=== PATIENT | male | born 2005 | race African-American/Black ===

== ENCOUNTER 2023-02-22 12:40 | Emergency (ER) | payer OTHER, MEDICAID, SELFPAY ==
[2023-02-22 13:06] VITALS: BP 127/62; PULSE 54; RESP 16; TEMP 36.5; O2SAT 100
--- NOTE | 2023-02-22 13:48 | ED.LOWEXIN ---
HPI - Extremity Injury (Lower) General Chief Complaint: Extremity Injury, Lower Stated Complaint: left leg pain Time Seen by Provider: 02/22/23 13:48 Source: patient Mode of arrival: ambulatory Limitations: no limitations History of Present Illness HPI Narrative: 17-year-old male presented for complaint of left calf pain for about 1.5 weeks. He denies known injury, but states he may have injured it while playing basketball, possibly taking a knee into the calf. He denies redness or swelling, numbness, tingling, weakness, chest pain, heart racing, shortness of breath, or dizziness. He has not taken anything for pain. He reports the calf pain has worsened since onset. Currently rates pain 8/10. Worse with walking and certain movements of the leg. Related Data Home Medications Medication Instructions Recorded Confirmed No Home Medications 02/22/23 02/22/23 Allergies Allergy/AdvReac Type Severity Reaction Status Date / Time No Known Allergies Allergy Unverified 02/22/23 13:16 Review of Systems Review of Systems: CONSTITUTIONAL: Denies body aches, fever, chills EYES: Denies visual changes ENT: Denies rhinorrhea, congestion CARDIOVASCULAR: Denies chest pain, palpitations, or edema. RESPIRATORY: Denies cough or dyspnea. GASTROINTESTINAL: Denies abdominal pain, nausea, vomiting, or diarrhea. SKIN: Denies rash, itching, or wounds. MUSCULOSKELETAL: Per HPI NEUROLOGIC: Denies headache, numbness, tingling, or weakness. PSYCH: Denies depression or anxiety. All systems reviewed & are unremarkable except as noted in HPI and below [facility] Past Medical History Medical History (Updated 02/22/23 @ 14:08 by Korin Acosta, ISATU) No pertinent past medical history Comments At time of signature, I have reviewed and agree with nursing past medical, surgical, social and family history unless otherwise noted. Please see nursing chart for further information. There is no relevant family history pertinent to the presenting complaint Exam Narrative: GENERAL: Well-appearing, in no acute distress. HEAD: Normocephalic, atraumatic. CHEST: Speaks in full sentences. No respiratory distress. Lungs clear. HEART: Regular rate and rhythm. Normal and equal peripheral pulses. EXTREMITIES: LLE has normal strength and sensation, Limited range of motion due to pain with movement; reports calf pain with foot dorsiflexion and flexion of knee. Tender calf with palpation. No edema, erythema, or ecchymosis. No open wounds, or obvious deformity; alignment normal, pulse palpable and equal bilaterally, skin warm, dry, pink. Capillary refill less than 3 seconds. SKIN: Warm, dry, no rash. NEURO: Alert and oriented x3. PSYCH: Normal mood and affect Course Course Emergency Course: Patient is aware of diagnosis, understands and agrees to treatment plan. Anticipatory guidance given. Portions of this record may have been created with voice recognition software Level of Care: Express Care Visit Vital Signs Vital signs: Vital Signs Temperature 97.7 F 02/22/23 13:06 Pulse Rate 54 L 02/22/23 13:06 Respiratory Rate 16 02/22/23 13:06 Blood Pressure 127/62 02/22/23 13:06 Pulse Oximetry 100 02/22/23 13:06 Oxygen Delivery Room Air 02/22/23 13:06 Temperature 97.7 F 02/22/23 13:06 Pulse Rate 54 L 02/22/23 13:06 Respiratory Rate 16 02/22/23 13:06 Blood Pressure 127/62 02/22/23 13:06 Pulse Oximetry 100 02/22/23 13:06 Oxygen Delivery Room Air 02/22/23 13:06 Reviewed Transfer Transfered to: [facility] Transportation: Other (Private vehicle) Transfer rationale: Pt is agreeable to transfer. Requests transfer to [facility] via private vehicle. Risks of transportation reviewed with pt including injury, worsening of condition and . v/u. Report called to hospital, spoke with Dave RAMIRES, Dr Ridley accepting physician. Pt is in stable condition at time of coburn
--- NOTE | 2023-02-22 14:03 | PC.NURSE ---
provider to provider report to [facility].
== END 2023-02-22 14:07 | disposition short-term general hospital (02) ==
PROVIDERS: Emergency Provider Nurse Practitioner Family
DX: M79.662 Pain in left lower leg (principal)
CPT/HCPCS: 99212; G0463

== ENCOUNTER 2024-10-25 06:06 | Emergency (ER) | payer OTHER, SELFPAY ==
--- NOTE | ~2024-10-25 | XR_ITS ---
EXAMINATION: XR chest 2V 10/25/2024 06:22 INDICATION: Chest pain PROCEDURE: 2 view chest COMPARISON: No prior studies for comparison. FINDINGS: The lungs are clear. The cardiomediastinal silhouette is within normal limits. There are no pleural effusions. There is no pneumothorax suspected. IMPRESSION: 1: NO ACUTE CARDIOPULMONARY DISEASE. Reviewed, dictated and finalized at location A. ING ADJUDICATOR
--- NOTE | 2024-10-25 06:08 | ECG_ITS ---
Test Date: 2024-10-25 06:15:50 Measurements Intervals [place] Rate: 70 P: 6 NE: 149 QRS: 60 QRSD: 98 T: 15 QT: 348 QTc: 377 Interpretive Statements SINUS RHYTHM NONSPECIFIC T-WAVE ABNORMALITY No previous ECG available for comparison Electronically Signed On 10-25-2024 14:34:11 LABORER [employer]FINERY by Hattie Gregory M.D.
--- OUTSIDE RECORDS SUMMARY | 2024-10-25 06:08 | XMS_ITS | Patient Health Summary ---
Author Organization [facility] Address [address] [place] [address] Care Team Providers Care Satellite Installation Technician Name Role Phone Donna Vizcaino MD, Cheikh Lester Primary Care Provider Note from [facility],non-owned Affiliates and Associated Physician Practices is amultiple site organization consisting of ambulatory clinics and hospital sitesin [place], [place]. This disclosure is being madepursuant to the Care Everywhere program and may not contain all information available regarding this patient. Last updated 18.[facility] Allergies No known active allergies Medications Be aware that medications may not be up to date on this document. Always verify current medications with the patient. No known medications Active Problems Problem Noted Date Diagnosed Date Buckle fracture of left wrist 06/07/2018 Social History Tobacco Use Types Packs/Day Years Used Date Smoking Tobacco: Never Assessed Sex and Gender Information Value Date Recorded Sex Assigned at Not on file Gender Identity Not on file Sexual Orientation Not on file Last Filed Vital Signs Vital Sign Reading Time Taken Comments Blood Pressure 104/58 06/07/2018 10:11 AM CDT Pulse - - Temperature - - Respiratory Rate - - Oxygen Saturation - - Inhaled Oxygen Concentration - - Weight 48.1 kg (106 lb 0.7 oz) 06/07/2018 10:11 AM CDT with arm splinted Height 165.2 cm (5' 5.04 ) 06/07/2018 1 0:11 AM CDT Body Mass Index 17.63 06/07/2018 10:11 AM CDT Procedures * XR FOREARM LEFT 2VW OR MORE(Performed 06/07/2018) Performed for Left arm pain Results * XR FOREARM 2 VW LEFT (06/07/2018 10:46 AM CDT) Anatomical Region Laterality Modality Upper Extremity Radiographic Sofia ging 06/07/2018 10:4 9 AM CDT Impressions 06/07/2018 11:39 AM CDT Distal radial metaphyseal buckle fracture. Dictated by Shaquille Kahn MD (resident buyer). Dante Barksdale, have personally reviewed the images and I agree with this report. Reading Radiologist: Clayton Kahn MD on 06/07/2018 at 11:39 AM Narrative 06/07/2018 11:39 AM CDT EXAMINATION: Left forearm, 2 views HISTORY: Left forearm pain COMPARISON: No prior study is available for comparison. FINDINGS: There is a buckle fracture of the distal radial metaphysis. Bone density is normal. ??Soft tissue swelling is present at the wrist. Procedure Note Danet Jamil MD - 06/07/2018 EXAMINATION: Left forearm, 2 views HISTORY: Left forearm pain COMPARISON: No prior study is available for comparison. FINDINGS: There is a buckle fracture of the distal radial metaphysis. Bone density is normal. Soft tissue swelling is present at the wrist. IMPRESSION Distal radial metaphyseal buckle fracture. Dictated by Shaquille Kahn MD (resident buyer). Dante Barksdale, have personally reviewed the images and I agree with this report. Reading Radiologist: Clayton Kahn MD on 06/07/2018 at 11:39 AM Elliott Naik PA-[facility] DIAGNOSTIC IMAGING O [facility] Care Teams Satellite Installation Technician Relationship Specialty Start Date End Date Cheikh Thompson Jr., MD [address] [place], [place] [id number] PCP - General 07/18/18
--- OUTSIDE RECORDS SUMMARY | 2024-10-25 06:08 | XMS_ITS | Clinical Summary ---
Author Organization [facility] Address [address] [place] [address] Care Team Providers Care Lock Installer Name Role Phone Donna Vizcaino MD, Cheikh Lester Primary Care Provider Source Comments [facility] [employer],non-owned Affiliates and Associated Physician Practices is amultiple site organization consisting of ambulatory clinics and hospital sitesin [place], [place], [place] and [place]. This disclosure is being madepursuant to the Care Everywhere program and may not contain all information available regarding this patient. Last updated 18.[employer] Allergies No known active allergies Medications Be [...] Mass Index 17.63 06/07/2018 10:11 AM CDT Plan of Treatment Health Maintenance Due Date Last Done Comments HIV SCREENING 2018 HPV VACCINE (1 - Male 3-dose series) 2018 MENINGOCOCCAL (Group B) VACC INE (1 of 2 - Standard) 2019 HEPATITIS C SCREENING 09/25/2021 DTAP/TDAP/TD VACCINES (1 - Tdap) 2022 HEPATITIS B VACCINE (1 of 3 - 19+ 3-dose series) 2022 COVID-19 VACCINE (1 - 2023-2 5 season) 2024 INFLUENZA VACCINE (#1) 2024 DEPRESSION SCREENING 09/25/2024 ZOSTER VACCINE (1 of 2) 2053 HIB VACCINE Aged Out No longer eligi ble based on patient's age to complete this topic MENINGOCOCCAL VACCINE Aged Out No josh erlinda eligible based on patient's age to complete this topic PNEUMOCOCCAL VACCINE Aged Out No long er eligible based on patient's age to complete this topic Care Teams Lock Installer Relationship Specialty Start Date End Date Cheikh Thompson Jr., MD [address] [place], [place] [phone] PCP - General 07/18/18
--- OUTSIDE RECORDS SUMMARY | 2024-10-25 06:08 | XMS_ITS | Referral Summary ---
Author Organization [place] [id number] [facility] Address [address] [place] [address] Care Team Providers Care Manager Technical Name Role Phone Ludwin Araiza MD Primary Care Provider [phone] Allergies No known active allergies Medications cyclobenzaprine (FLEXERIL) 10 mg tablet Take 1 tablet (10 mg total) by mouth 3 (three) times a day as needed for muscle spasms for up to 20 doses 15 tablet 02/22/2023 Active Social History Tobacco Use Types Packs/Day Years Used Date Smoking Tobacco: Never Assessed Personal Safety Answer Date Recorded Getting School Help Needed Not on file 09/24 Sex and Gender Information Value Date Recorded Sex Assigned at Not on file 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 Gender Identity Not on file Sexual Orientation Not on file Last Filed Vital Signs Vital Sign Reading Time Taken Comments Blood Pressure 156/76 02/22/2023 3:31 PM CDT Pulse 58 02/22/2023 3:31 PM CDT Temperature 36.8 ??C (98.3 ??F) 02/22/2023 3:31 PM CD T Respiratory Rate 16 02/22/2023 3:31 PM CDT Oxygen Saturation 99% 02/22/2023 3:31 PM CDT Inhaled Oxygen Concentration - - Weight 72.6 kg (160 lb) 02/22/2023 3:31 PM CDT Height 175.3 cm (5' 9 ) 02/22/2023 3:31 PM CDT Body Mass Index 23.63 02/22/2023 3:31 PM CDT Plan of Treatment Not on file Insurance IDPA IDPA Care Teams Manager Technical Relationship Specialty Start Date End Date Ludwin Araiza MD PCP - General Emergency Medicine 03/01/23
--- OUTSIDE RECORDS SUMMARY | 2024-10-25 06:08 | XMS_ITS | Clinical Summary ---
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 Gender Identity Not on file Sexual Orientation [...] 02/22/2023 3:31 PM CDT Plan of Treatment Health Maintenance Due Date Last Done Comments Depression Screening 2003 Hepatitis C Screening 2003 DTaP/Tdap/Td Vaccine (1 - Tdap) 2014 Varicella Vaccines (1 of 2 - 13+ 2-dose series) 2016 HPV Vaccines (1 - Male 3-dos e series) 2018 Meningococcal B Vaccine (1 o f 2 - Patient Seeks Protection) 2019 Hepatitis B Screening 2021 Regular Well Visit/Exam 18-64 2021 Influenza Vaccine (#1) 2024 Meningococcal Vaccine Aged Out No josh erlinda eligible based on patient's age to complete this topic Pneumococcal vaccine <65 Aged Out No longer eligible based on patient's age to complete this topic Insurance IDPA IDPA Care Teams Straw Hat Brim Raiser Operator Relationship Specialty Start Date End Date Ludwin Araiza MD PCP - General Emergency Medicine 03/01/23
--- OUTSIDE RECORDS SUMMARY | 2024-10-25 06:08 | XMS_ITS | Referral Summary ---
Author Organization [facility] [employer] Address [address] [place] [address] Care Team Providers Care Supervisor Food Checkers And Cashiers Name Role Phone Donna Vizcaino MD, Cheikh Lester Primary Care Provider Source Comments [facility] [employer],non-owned Affiliates and Associated Physician Practices is amultiple site organization consisting of ambulatory clinics and hospital sitesin [place], [place], [place] and [place]. This disclosure is being madepursuant to the Care Everywhere program and may not contain all information available regarding this patient. Last updated 18.[facility] [employer] Allergies No known active allergies Medications Be [...] 06/07/2018 10:11 AM CDT Plan of Treatment Not on file Care Teams Supervisor Food Checkers And Cashiers Relationship Specialty Start Date End Date Cheikh Thompson Jr., MD [address] [place], [place] [phone] PCP - General 07/18/18
[2024-10-25 06:17] VITALS: BP 148/73; PULSE 68; RESP 16; TEMP 36.6; O2SAT 100
[2024-10-25 06:22] LABS: Basophils Percent Auto 0.7 % (0.2-1.2); Eosinophils Absolute Auto 0.1 K/mm3 (0-0.3); Eosinophils Percent Auto 2.9 % (0-4.4); Hematocrit 46.8 % (42.0-52.0); Hemoglobin 15.3 g/dL (14.0-18.0); Immature Granulocyte Absolute 0.01 K/mm3 (0.00-0.031); Immature Granulocyte Percent A 0.2 % (0-0.5); Lymphocytes Absolute Auto 1.92 K/mm3 (0.9-3.2); Lymphocytes Percent Auto 42.3 % (18.3-44.2); Mean Corpuscular HGB Conc 32.7 g/dl (32-36); Mean Corpuscular Hemoglobin 28.1 pg (26-34); Mean Platelet Volume 10.3 fl (7.4-10.4); Monocytes Absolute Auto 0.3 K/mm3 (0.1-0.6); Monocytes Percent Auto 7.5 % (2.6-8.5); Neutrophils Absolute Auto 2.1 K/mm3 (1.3-6.7); Neutrophils Percent Auto 46.4 % (45.5-73.1); Platelet Count Result 198 k/mm3 (150-375); Red Blood Count 5.44 M/mm3 (4.6-6.20); Red Cell Distribution Width 13.1 % (11.5-14.5); White Blood Count 4.5 K/mm3 (4.5-10.0)
[2024-10-25 06:44] LABS: Alanine Aminotransferase 25 U/L (6-50); Albumin Level 4.3 g/dL (3.5-5.1); Alkaline Phosphatase 67 U/L (38-126); Anion Gap 11 mmol/L (4-12); Aspartate Amino Transferase 25 U/L (17-59); Bilirubin,Total 0.7 mg/dL (0.2-1.3); Blood Urea Nitrogen 13 mg/dL (9-20); Calcium 9.5 mg/dL (8.4-10.2); Carbon Dioxide 25 mmol/L (22-30); Chloride 105 mmol/L (98-107); Estimated CRCL calculation 140 ml/min; Estimated Glomerular Filt Rate > 60; Glucose 103 mg/dL (65-110); Lipase 47 U/L (23-300); Potassium 3.9 mmol/L (3.4-5.0); Sodium 141 mmol/L (137-145)
[2024-10-25 06:48] LABS: Troponin I < 0.012 ng/mL (0.000-0.034)
[2024-10-25 07:00] LABS: Influenza A QL RT-PCR Negative (Negative); Influenza B QL RT-PCR Negative (Negative); RSV RNA, RT-PCR Negative (Negative); SARS-CoV-2 RNA PCR Negative (Negative)
[2024-10-25 07:05] LABS: Prothrombin Time 13.6 Seconds (11.1-14.7)
[2024-10-25 07:06] LABS: Partial Thromboplastin Time 30.2 Seconds (22.3-36.8)
--- NOTE | 2024-10-25 10:26 | PC.NURSE ---
called to place in room and not in waiting room
--- OUTSIDE RECORDS SUMMARY | 2024-10-25 10:38 | XMS_ITS | Clinical Summary ---
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
--- OUTSIDE RECORDS SUMMARY | 2024-10-25 10:38 | XMS_ITS | Clinical Summary ---
Author Organization [facility] [employer] Address [address] [place] [address] Care Team Providers Care Email Marketer Name Role Phone Donna Vizcaino MD, Cheikh Lester Primary Care Provider Source Comments [facility] [employer],non-owned Affiliates and Associated Physician Practices is amultiple site organization consisting of ambulatory clinics and hospital sitesin [place], [place], [place] and [place]. This disclosure is being madepursuant to the Care Everywhere program and may not contain all information available regarding this patient. Last updated 18.[employer] Allergies No known active allergies Medications Be [...] age to complete this topic Care Teams Email Marketer Relationship Specialty Start Date End Date Cheikh Thompson Jr., MD [address] [place], [place] [phone] PCP - General 07/18/18
--- OUTSIDE RECORDS SUMMARY | 2024-10-25 10:38 | XMS_ITS | Referral Summary ---
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
--- OUTSIDE RECORDS SUMMARY | 2024-10-25 10:38 | XMS_ITS | Referral Summary ---
Author Organization [facility] [employer] Address [address] [place] [address] Care Team Providers Care Cupola Melter Helper Name Role Phone Donna Vizcaino MD, Cheikh Lester Primary Care Provider Source Comments [facility] [employer]),non-owned Affiliates and Associated Physician Practices is amultiple site organization consisting of ambulatory clinics and hospital sitesin [place], [place], [place] and [place]. This disclosure is being madepursuant to the Care Everywhere program and may not contain all information available regarding this patient. Last updated 18.[facility] [employer] Allergies No known active allergies Medications Be [...] of Treatment Not on file Care Teams Cupola Melter Helper Relationship Specialty Start Date End Date Cheikh Thompson Jr., MD [address] [place], [place] [phone] PCP - General 07/18/18
--- OUTSIDE RECORDS SUMMARY | 2024-10-25 10:38 | XMS_ITS | Patient Health Summary ---
Author Organization [facility] [employer] Address [address] [place] [address] Care Team Providers Care Procurement Director Name Role Phone Donna Vizcaino MD, Cheikh Lester Primary Care Provider Note from [facility],non-owned Affiliates and Associated Physician Practices is amultiple site organization consisting of ambulatory clinics and hospital sitesin [place], [place], [place] and [place]. This disclosure is being madepursuant to the Care Everywhere program and may not contain all information available regarding this patient. Last updated 18.[facility] [employer] Allergies No known active allergies Medications Be [...] buckle fracture. Dictated by Shaquille Kahn MD (senior vice president and chief information officer). Dante Barksdale, have personally reviewed the images [...] is present at the wrist. Procedure Note Dante Jamil MD - 06/07/2018 EXAMINATION: Left forearm, 2 views HISTORY: Left forearm pain COMPARISON: No prior study is available for comparison. FINDINGS: There is a buckle fracture of the distal radial metaphysis. Bone density is normal. Soft tissue swelling is present at the wrist. IMPRESSION Distal radial metaphyseal buckle fracture. Dictated by Shaquille Kahn MD (senior vice president and chief information officer). Dante Barksdale, have personally reviewed the images and I agree with this report. Reading Radiologist: Clayton Kahn MD on 06/07/2018 at 11:39 AM Elliott Naik PA-[facility] DIAGNOSTIC IMAGING O [facility] Care Teams Procurement Director Relationship Specialty Start Date End Date Cheikh Thompson Jr., MD [address] [place], [place] [phone] PCP - General 07/18/18
== END 2024-10-25 11:05 | disposition left against medical advice (07) ==
PROVIDERS: Emergency Provider Student in an Organized Health Care Education/Training Program
DX: R07.9 Chest pain, unspecified (principal); Z20.822 Contact with and (suspected) exposure to COVID-19
CPT/HCPCS: 36415; 71046; 80053; 83690; 84484; 85025; 85610; 85730; 87637; 93005; 99199

== ENCOUNTER 2024-12-01 01:39 | Emergency (ER) | payer OTHER, SELFPAY ==
[2024-12-01 01:40] VITALS: BP 133/84; PULSE 73; RESP 18; TEMP 36.7; O2SAT 100
--- OUTSIDE RECORDS SUMMARY | 2024-12-01 01:41 | XMS_ITS | Clinical Summary ---
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 Gender Identity Not on file Sexual Orientation Not on file Last Filed Vital Signs Vital Sign Reading Time Taken Comments Blood Pressure 156/76 02/22/2023 3:31 PM CDT Pulse 58 02/22/2023 3:31 PM CDT Temperature 36.8 C (98.3 F) 02/22/2023 3:31 PM CDT Respiratory Rate 16 02/22/2023 3:31 PM CDT [...] B Vaccine (1 o f 2 - Standard) 2019 Hepatitis B Screening 2021 Regular Well Visit/Exam 18-64 2021 Influenza Vaccine (#1) 2024 Meningococcal Vaccine Aged Out No josh erlinda eligible based on patient's age to complete this topic Pneumococcal vaccine <65 Aged Out No longer eligible based on patient's age to complete this topic Insurance IDPA IDPA Care Teams Night Stocker Relationship Specialty Start Date End Date Ludwin Araiza MD PCP - General Emergency Medicine 03/01/23
--- OUTSIDE RECORDS SUMMARY | 2024-12-01 01:41 | XMS_ITS | Clinical Summary ---
Author Organization [facility] [employer] Address [address] [place] [address] Care Team Providers Care Heatset Winder Operator Name Role Phone Donna Vizcaino MD, Cheikh Lester Primary Care Provider Source Comments [facility] [employer],non-owned Affiliates and Associated Physician Practices is amultiple site organization consisting of ambulatory clinics and hospital sitesin [place], [place] and [place]. This disclosure is being madepursuant to the Care Everywhere program and may not contain all information available regarding this patient. Last updated 18.[employer] Allergies No known active allergies Medications Be [...] age to complete this topic Care Teams Heatset Winder Operator Relationship Specialty Start Date End Date Cheikh Thompson Jr., MD [address] [place], [place] [phone] PCP - General 07/18/18
--- OUTSIDE RECORDS SUMMARY | 2024-12-01 01:41 | XMS_ITS | Patient Health Summary ---
Author Organization [facility] [employer] Address [address] [place] [address] Care Team Providers Care Instructional Facilitator Name Role Phone Donna Vizcaino MD, Cheikh Lester Primary Care Provider Note from [facility],non-owned Affiliates and Associated Physician Practices is amultiple site organization consisting of ambulatory clinics and hospital sitesin [place], [place], [place] and [place]. This disclosure is being madepursuant to the Care Everywhere program and may not contain all information available regarding this patient. Last updated 18.[facility] [employer] Allergies No known active allergies Medications Be [...] buckle fracture. Dictated by Shaquille Kahn MD (vice president of nursing). Dante Barksdale, have personally reviewed the images [...] buckle fracture. Dictated by Shaquille Kahn MD (vice president of nursing). Dante Barksdale, have personally reviewed the images and I agree with this report. Reading Radiologist: Clayton Kahn MD on 06/07/2018 at 11:39 AM Elliott Naik PA-C DIAGNOSTIC IMAGING O [facility] Care Teams Instructional Facilitator Relationship Specialty Start Date End Date Cheikh Thompson Jr., MD [address] [place], [place] [phone] PCP - General 07/18/18
--- OUTSIDE RECORDS SUMMARY | 2024-12-01 01:41 | XMS_ITS | Referral Summary ---
Author Organization [facility] [employer] Address [address] [place] [place] [address] Care Team Providers Care Packaging Mechanic Name Role Phone Donna Vizcaino MD, Cheikh Lester Primary Care Provider Source Comments [facility] [employer],non-owned Affiliates and Associated Physician Practices is amultiple site organization consisting of ambulatory clinics and hospital sitesin [place], [place], [place] and [place]. This disclosure is being madepursuant to the Care Everywhere program and may not contain all information available regarding this patient. Last updated 18.[employer] Allergies No known active allergies Medications Be [...] of Treatment Not on file Care Teams Packaging Mechanic Relationship Specialty Start Date End Date Cheikh Thompson Jr., MD [address] [place], [place] [phone] PCP - General 07/18/18
--- OUTSIDE RECORDS SUMMARY | 2024-12-01 01:41 | XMS_ITS | Referral Summary ---
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
--- NOTE | 2024-12-01 01:59 | ED_ITS ---
HPI - General Adult General Chief complaint: Unspecified Stated complaint: sore throat Time Seen by Provider: 12/01/24 01:45 Source: patient Mode of arrival: ambulatory Limitations: no limitations History of Present Illness HPI narrative: This is a 19-year-old male who denies significant past medical history, presenting to the emergency department complaining of sore throat for the past day. The patient rates his pain 7/10. He denies associated cough, vomiting or shortness of breath. He states he has had some upper respiratory congestion. He denies any known sick contacts or recent travel. He has no other acute complaints at this time. Related Data Home Medications ?Medication ?Instructions ?Recorded ?Confirmed ?Last Taken ?Type Tylenol 02/28/23 Unknown History Allergies Allergy/AdvReac Type Severity Reaction Status Date / Time No Known Allergies Allergy Verified 02/28/23 11:57 Review of Systems Review of Systems: All systems reviewed & are unremarkable except as noted in HPI and below PMFSH Past Medical History Medical History No significant past medical history No pertinent past medical history Surgical History Surgical History No significant past surgical history Social History Social History Smoking status: Never smoker Alcohol intake: never Substance use: never Exam Narrative: GENERAL: Well-developed, well-nourished, and in no acute distress. HEAD: Normocephalic, atraumatic. EYES: PERRLA and EOMI. ENT: Nares clear, no rhinorrhea or epistaxis. Mucous membranes moist. Oropharynx with tonsillar hypertrophy, erythema and exudate versus tonsil stone. No other lesions. NECK: Supple. Tender left anterior cervical lymphadenopathy CHEST: Clear to auscultation. No respiratory distress. No wheezes rales or rhonchi HEART: Regular rate and rhythm. No murmur heard. Normal peripheral pulses. ABDOMEN: Soft, nontender, nondistended, normal active bowel sounds. NEURO: Alert and oriented x3. No focal deficit. Moving all 4 limbs spontaneously PSYCH: Normal mood and affect. Course Course Emergency Course: 03:31 - Strep swab negative. I suspect a viral pharyngitis. Will discharge with recommendation for supportive care and primary care follow-up. I discussed the findings and recommendations with the patient. Discussed return and emergency precautions including signs/symptoms of deep space neck infection and airway compromise. The patient voiced understanding and agreement with the plan. All questions answered to his satisfaction. Vital Signs Vital signs: Vital Signs Temperature 98.1 F 12/01/24 01:40 Pulse Rate 73 12/01/24 01:40 Respiratory Rate 18 12/01/24 01:40 Blood Pressure 133/84 12/01/24 01:40 Pulse Oximetry 100 12/01/24 01:40 Oxygen Delivery Room Air 12/01/24 01:40 Temperature 98.1 F 12/01/24 01:40 Pulse Rate 73 12/01/24 01:40 Respiratory Rate 18 12/01/24 01:40 Blood Pressure 133/84 12/01/24 01:40 Pulse Oximetry 100 12/01/24 01:40 Oxygen Delivery Room Air 12/01/24 01:40 Medical Decision Making MDM Narrative Medical decision making narrative: Plan: Labs, symptomatic control, reassess Differential Diagnosis Differential Diagnosis: Strep pharyngitis, viral pharyngitis, viral upper respiratory infection, other Vital Signs Vital Signs: Vital Signs Temperature 98.1 F 12/01/24 01:40 Pulse Rate 73 12/01/24 01:40 Respiratory Rate 18 12/01/24 01:40 Blood Pressure 133/84 12/01/24 01:40 Pulse Oximetry 100 12/01/24 01:40 Oxygen Delivery Room Air 12/01/24 01:40 Temperature 98.1 F 12/01/24 01:40 Pulse Rate 73 12/01/24 01:40 Respiratory Rate 18 12/01/24 01:40 Blood Pressure 133/84 12/01/24 01:40 Pulse Oximetry 100 12/01/24 01:40 Oxygen Delivery Room Air 12/01/24 01:40 Lab Data Labs: Lab Results 12/01/24 Range/Units 03:00 Group A Strep (PCR) Not detected (Negative) Discharge Plan Discharge Clinical Impression: Acute sore throat, Acute viral pharyngitis Patient Disposition: Home, Self-Care Condition: Stable Instructions: Antibiotic Form, Pharyngitis (ED) Additional Instructions: You were seen in the emergency department. A strep test was negative. Your given a dose of steroid. I recommend Tylenol/ibuprofen and lozenges as needed for pain. Salt water gargles verses honey lemon tea may also help. I recommend following up with your primary care doctor. If you develop fevers with severe neck pain and swelling, difficulty breathing, difficulty swallowing, or if you have other emergent concerns for life, limb, or eyesight, return to the emerg ency department. Patient Language: Dominican Prescriptions: No Action Tylenol Follow-up/Referrals: UNKNOWN,DOCTOR [Primary Care Provider] - 2 Weeks Time of Disposition: 03:31
[2024-12-01] MEDS: dexAMETHasone 10 MG/10 ML INTENSOL CONC (*BKC) PO (03:00)
--- OUTSIDE RECORDS SUMMARY | 2024-12-01 03:02 | XMS_ITS | Patient Health Summary ---
Author Organization [facility] Address [address] [place] [address] Care Team Providers Care Channel Account Manager Name Role Phone Donna Vizcaino MD, Cheikh Lester Primary Care Provider Note from [facility],non-owned Affiliates and Associated Physician Practices is amultiple site organization consisting of ambulatory clinics and hospital sitesin [place], [place], [place] and [place]. This disclosure is being madepursuant to the Care Everywhere program and may not contain all information available regarding this patient. Last updated 18.[facility] Allergies No known active allergies Medications Be [...] buckle fracture. Dictated by Shaquille Kahn MD (sales vice president). Dante Barksdale, have personally reviewed the images [...] buckle fracture. Dictated by Shaquille Kahn MD (sales vice president). Dante Barksdale, have personally reviewed the images and I agree with this report. Reading Radiologist: Clayton Kahn MD on 06/07/2018 at 11:39 AM Elliott Naik PA-C DIAGNOSTIC IMAGING O [facility] Care Teams Channel Account Manager Relationship Specialty Start Date End Date Cheikh Thompson Jr., MD [address] [place], [place] [id number] PCP - General 07/18/18
--- OUTSIDE RECORDS SUMMARY | 2024-12-01 03:02 | XMS_ITS | Referral Summary ---
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
--- OUTSIDE RECORDS SUMMARY | 2024-12-01 03:02 | XMS_ITS | Clinical Summary ---
Author Organization [facility] Address [address] [place] [address] Care Team Providers Care Architecture Drafter Name Role Phone Donna Vizcaino MD, Cheikh Lester Primary Care Provider Source Comments [facility],non-owned Affiliates and Associated Physician Practices is amultiple site organization consisting of ambulatory clinics and hospital sitesin [place], [place], [place] and [place]. This disclosure is being madepursuant to the Care Everywhere program and may not contain all information available regarding this patient. Last updated 18.[facility] Allergies No known active allergies Medications Be [...] age to complete this topic Care Teams Architecture Drafter Relationship Specialty Start Date End Date Cheikh Thompson Jr., MD [address] [place], [place] [id number] PCP - General 07/18/18
--- OUTSIDE RECORDS SUMMARY | 2024-12-01 03:02 | XMS_ITS | Clinical Summary ---
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
--- OUTSIDE RECORDS SUMMARY | 2024-12-01 03:02 | XMS_ITS | Referral Summary ---
Author Organization [facility] Address [address] [place] [address] Care Team Providers Care Engine Head Repairer Name Role Phone Donna Vizcaino MD, Cheikh Lester Primary Care Provider Source Comments [facility],non-owned Affiliates and Associated Physician Practices is amultiple site organization consisting of ambulatory clinics and hospital sitesin [place], [place], [place] and [place]. This disclosure is being madepursuant to the Care Everywhere program and may not contain all information available regarding this patient. Last updated 18.[facility] Allergies No known active allergies Medications Be [...] of Treatment Not on file Care Teams Engine Head Repairer Relationship Specialty Start Date End Date Cheikh Thompson Jr., MD [address] [place], [place] [phone] PCP - General 07/18/18
[2024-12-01 03:27] LABS: Strep Group A RT-PCR NOT DETECTED (Negative)
== END 2024-12-01 03:39 | disposition home or self-care (01) ==
PROVIDERS: Emergency Provider Preventive Medicine Aerospace Medicine
DX: J02.9 Acute pharyngitis, unspecified (principal)
CPT/HCPCS: 87651; 99283; J8540

== ENCOUNTER 2025-04-19 13:19 | Emergency (ER) | payer OTHER, SELFPAY ==
--- OUTSIDE RECORDS SUMMARY | 2025-04-19 13:20 | XMS_ITS | Referral Summary ---
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
--- OUTSIDE RECORDS SUMMARY | 2025-04-19 13:20 | XMS_ITS | Clinical Summary ---
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
--- OUTSIDE RECORDS SUMMARY | 2025-04-19 13:21 | XMS_ITS | Clinical Summary ---
Author Organization [facility] [employer] Address [address] [place] [address] Care Team Providers Care Anchor Operator Name Role Phone Donna Vizcaino MD, Cheikh Lester Primary Care Provider Source Comments [facility] [employer],non-owned Affiliates and Associated Physician Practices is amultiple site organization consisting of ambulatory clinics and hospital sitesin [place], [place], [place] and [place]. This disclosure is being madepursuant to the Care Everywhere program and may not contain all information available regarding this patient. Last updated 18.[facility] [employer] Allergies No known active allergies Medications * Be aware that medications may not be up to date on this document. Alwaysverify current medications with the patient. 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 Gender Identity Not on file Sexual Orientation [...] with arm splinted Height 165.2 cm (5' 5.04) 06/07/2018 1 0:11 AM CDT Body Mass Index 17.63 06/07/2018 10:11 AM CDT Plan of Treatment Health Maintenance Due Date Last Done Comments HIV SCREENING 2018 HPV VACCINE (1 - Male 3-dose series) 2018 MENINGOCOCCAL (Group B) VACC INE SHARED DECISION-MAKING (1 of 2 - Standard) 2019 HEPATITIS C SCREENING 09/25/2021 DTAP/TDAP/TD VACCINES (1 - Tdap) 2022 HEPATITIS B VACCINE (1 of 3 - 19+ 3-dose series) 2022 COVID-19 VACCINE (1 - 2023-2 5 season) 2024 DEPRESSION SCREENING 09/25/2024 INFLUENZA VACCINE (#1) 2025 ZOSTER VACCINE (1 of 2) 2053 HIB VACCINE Aged Out No longer eligi ble based on patient's age to complete this topic MENINGOCOCCAL GROUPS A/C/Y/W VACCINE Aged Out No longer eligible b ased on patient's age to complete this topic PNEUMOCOCCAL VACCINE Aged Out No long er eligible based on patient's age to complete this topic Insurance [place]ID - [place] [facility] CIGNA MEDICAID - OUT OF STATE Care Teams Anchor Operator Relationship Specialty Start Date End Date Cheikh Thompson Jr., MD [address] [place], [place] [id number] PCP - General 07/18/18
[2025-04-19 13:23] VITALS: BP 132/87; PULSE 60; RESP 18; TEMP 36.6; O2SAT 100
--- OUTSIDE RECORDS SUMMARY | 2025-04-19 13:53 | XMS_ITS | Referral Summary ---
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
--- OUTSIDE RECORDS SUMMARY | 2025-04-19 13:53 | XMS_ITS | Clinical Summary ---
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
--- OUTSIDE RECORDS SUMMARY | 2025-04-19 13:53 | XMS_ITS | Clinical Summary ---
Author Organization [facility] [employer] [facility] Address [address] [place] [address] Care Team Providers Care Senior Buyer Planner Name Role Phone Donna Vizcaino MD, Cheikh Lester Primary Care Provider Source Comments [facility] [employer],non-owned Affiliates and Associated Physician Practices is amultiple site organization consisting of ambulatory clinics and hospital sitesin [place], [place], [place] and [place]. This disclosure is being madepursuant to the Care Everywhere program and may not contain all information available regarding this patient. 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
--- NOTE | 2025-04-19 14:59 | ED.GENADULT ---
HPI - General Adult General Chief complaint: Upper Respiratory Infection Stated complaint: swelling to tonsils Time Seen by Provider: 04/19/25 13:43 History of Present Illness HPI narrative: 19-year-old male presenting to the emergency department for evaluation for worsening sore throat over the course of the last month. Patient states he does feel that his tonsils have been swollen. Patient complains that the throat soreness is worse on the left than the right. Patient does have associated sinus pressure and postnasal drip. Patient denies any significant past medical history. Related Data Home Medications ?Medication ?Instructions ?Recorded ?Confirmed ?Last Taken ?Type Tylenol 02/28/23 Unknown History Allergies Allergy/AdvReac Type Severity Reaction Status Date / Time No Known Allergies Allergy Verified 04/19/25 13:48 Review of Systems Review of Systems: All systems reviewed & are unremarkable except as noted in HPI and below PMFSH Past Medical History Medical History No significant past medical history No pertinent past medical history Surgical History Surgical History No significant past surgical history Social History Social History Smoking status: Never smoker Alcohol intake: never Substance use: never Exam Narrative: APPEARANCE: Well appearing, no pain, no distress, well-nourished. HEAD: normocephalic, atraumatic. EYES: PERRLA/EOMI, conjunctivae clear. NOSE: Normal no drainage EARS:TMS clear with good light reflex. THROAT: Pharynx clear, no exudate. NECK: Supple. No adenopathy, no masses. RESPIRATORY: Airway patent, respirations nonlabored. Clear to auscultation bilaterally, no rales, rhonchi, wheezing. CARDIOVASCULAR: Regular rate and rhythm without murmurs rubs or gallops. ABDOMINAL: Soft, nontender, nondistended, normal bowel sounds MUSCULOSKELETAL: Moves all extremities. Strength/ROM intact, No edema, No calf tenderness. NEURO: Alert. Cranial nerves II through XII intact. Good gait. Good coordination SKIN: Warm, dry. Normal Color Course Vital Signs Vital signs: Vital Signs Temperature 97.9 F 04/19/25 13:23 Pulse Rate 60 04/19/25 13:23 Respiratory Rate 18 04/19/25 13:23 Blood Pressure 132/87 04/19/25 13:23 Pulse Oximetry 100 04/19/25 13:23 Oxygen Delivery Room Air 04/19/25 13:23 Temperature 97.9 F 04/19/25 13:23 Pulse Rate 60 04/19/25 13:23 Respiratory Rate 18 04/19/25 13:23 Blood Pressure 132/87 04/19/25 13:23 Pulse Oximetry 100 04/19/25 13:23 Oxygen Delivery Room Air 04/19/25 13:47 Medical Decision Making MDM Narrative Medical decision making narrative: 19-year-old male presents emergency department for evaluation sore throat. Patient was negative for strep and mono. No asymmetry of the posterior pharynx, no concern for peritonsillar abscess or posterior pharyngeal abscess. Patient most likely has a viral etiology worsened by postnasal drip. Differential Diagnosis Differential Diagnosis: COVID, RSV influenza, strep throat, mono viral syndrome Vital Signs Vital Signs: Vital Signs Temperature 97.9 F 04/19/25 13:23 Pulse Rate 60 04/19/25 13:23 Respiratory Rate 18 04/19/25 13:23 Blood Pressure 132/87 04/19/25 13:23 Pulse Oximetry 100 04/19/25 13:23 Oxygen Delivery Room Air 04/19/25 13:23 Temperature 97.9 F 04/19/25 13:23 Pulse Rate 60 04/19/25 13:23 Respiratory Rate 18 04/19/25 13:23 Blood Pressure 132/87 04/19/25 13:23 Pulse Oximetry 100 04/19/25 13:23 Oxygen Delivery Room Air 04/19/25 13:47 Lab Data Labs: Lab Results 04/19/25 Range/Units 15:04 Monoscreen Negative (Negative) Group A Strep (PCR) Not detected (Negative) Discharge Plan Discharge Clinical Impression: Pharyngitis Patient Disposition: Home Condition: Stable Instructions: Antibiotic Form, Pharyngitis (ED), Viral Syndrome (ED) Additional Instructions: Tylenol and ibuprofen for pain control, warm saltwater gargle as directed. Antihistamines as directed to help with postnasal drip. Have close follow-up with your primary care physician. Patient Language: Cape Verdean Prescriptions: No Action Tylenol Follow-up/Referrals: PHYSICIAN,SUPERVISOR HYDROCHLORIC AREA [Primary Care Provider] -
[2025-04-19 15:27] LABS: Negative Monotest Control Negative (Negative); Positive Monotest Control Positive (Positive)
[2025-04-19 15:33] LABS: Strep Group A RT-PCR NOT DETECTED (Negative)
== END 2025-04-19 16:04 | disposition home or self-care (01) ==
PROVIDERS: Emergency Provider Emergency Medicine
DX: J02.9 Acute pharyngitis, unspecified (principal)
CPT/HCPCS: 36415; 86308; 87651; 99283